=== PATIENT | male | born 1995 | race Caucasian/White ===

== ENCOUNTER → 2016-10-02 | Outpatient (CLI) | payer OTHER ==
--- NOTE | 2016-10-02 13:43 | DIAGNOSTIC IMAGING REPORT ---
RIGHT WRIST MIN 3 VIEWS ROUTINE CLINICAL HISTORY: Right wrist pain following trauma. COMPARISON: None FINDINGS: There is an acute nondisplaced transverse fracture through the distal metaphysis of the right radius. There is a minimally displaced avulsed fragment along the ulnar styloid. No additional fractures are identified. Carpal bones appear intact. IMPRESSION: 1. Acute nondisplaced transverse fracture of the distal metaphysis of the right radius. 2. Minimally displaced avulsion fracture of the ulnar styloid. Electronically signed by: Avni Manjarrez M.D. 10/02/2016 1:42 PM Dictated Date/Time: 10/02/2016 1:41 PM
== END | disposition home or self-care (01) ==
LOC: C.RAD 13:16
PROVIDERS: ATTEND Orthopaedic Surgery Sports Medicine
DX: S59.201A Unspecified physeal fracture of lower end of radius, right arm, initial encounter for closed fracture (principal); S52.611A Displaced fracture of right ulna styloid process, initial encounter for closed fracture; X58.XXXA Exposure to other specified factors, initial encounter

== ENCOUNTER → 2016-10-19 | Outpatient (CLI) | payer OTHER ==
--- NOTE | 2016-10-19 10:57 | DIAGNOSTIC IMAGING REPORT ---
RIGHT WRIST MIN 3 VIEWS ROUTINE CLINICAL HISTORY: RIGHT DISTAL RADIUS FX Right COMPARISON STUDY: Right wrist 10/02/2016. FINDINGS: Progressive sclerosis within the distal right radius fracture consistent with healing. Tiny fracture at the tip the ulnar styloid remains unchanged. The carpal bones appear intact. Mild soft tissue swelling has slightly improved. IMPRESSION: Healing nondisplaced distal right radius fracture. Electronically signed by: Carlos Viveros M.D. 10/19/2016 10:55 AM Dictated Date/Time: 10/19/2016 10:54 AM
== END | disposition home or self-care (01) ==
LOC: C.RDSM 10:30
PROVIDERS: ATTEND Family Medicine
DX: S52.514D Nondisplaced fracture of right radial styloid process, subsequent encounter for closed fracture with routine healing (principal); X58.XXXD Exposure to other specified factors, subsequent encounter

== ENCOUNTER → 2016-11-08 | Outpatient (CLI) | payer OTHER | END | disposition home or self-care (01) | LOC: C.RDSM 15:00 | PROVIDERS: ATTEND Orthopaedic Surgery Sports Medicine | DX: S52.501A Unspecified fracture of the lower end of right radius, initial encounter for closed fracture (principal); X58.XXXA Exposure to other specified factors, initial encounter ==

== ENCOUNTER → 2016-11-22 | Outpatient (CLI) | payer OTHER ==
--- NOTE | 2016-11-22 08:48 | DIAGNOSTIC IMAGING REPORT ---
RIGHT WRIST MIN 3 VIEWS ROUTINE CLINICAL HISTORY: CLOSED FX OF RIGHT DISTAL RADIUS Right fracture COMPARISON: 11/08/2016 DISCUSSION: Transverse fracture distal radius. Tiny avulsion ulnar styloid. Similar appearance compared to the prior study. There is no evidence for soft tissue swelling. IMPRESSION: Transverse fracture distal radius. Tiny avulsion ulnar styloid. Electronically signed by: Trevon Archibald M.D. 11/22/2016 8:47 AM Dictated Date/Time: 11/22/2016 8:46 AM
== END | disposition home or self-care (01) ==
LOC: C.RDSM 08:20
PROVIDERS: ATTEND Family Medicine
DX: S52.501A Unspecified fracture of the lower end of right radius, initial encounter for closed fracture (principal); X58.XXXA Exposure to other specified factors, initial encounter

== ENCOUNTER → 2016-12-30 | Outpatient (CLI) | payer OTHER | LOC: C.RDSM 14:00 | PROVIDERS: ATTEND Orthopaedic Surgery Sports Medicine | DX: S62.101A Fracture of unspecified carpal bone, right wrist, initial encounter for closed fracture (principal); X58.XXXA Exposure to other specified factors, initial encounter ==